=== PATIENT | female | born 1985 | race Caucasian/White ===

== ENCOUNTER → 2017-02-01 | Outpatient (CLI) | payer MEDICAID ==
[~2017-02-01] MED LIST: DEXA4TAB PO; GABA100C PO; GABA100C8 PO; HYDR2TAB13 PO; HYDR30CR69 RC; HYDR4TAB16 PO; IBUP200T48 PO; LORA0.5T PO; MORP30TA3 PO; NITR100C56 PO; ONDA4TAB10 PO; OXYC5TAB3 PO; SENN-25 PO; ZOLP10TA PO
== END | disposition home or self-care (01) ==
LOC: PETCFH 08:37
PROVIDERS: ATTEND Specialist
DX: C53.0 Malignant neoplasm of endocervix (principal); N20.0 Calculus of kidney; K76.0 Fatty (change of) liver, not elsewhere classified
CPT/HCPCS: 78815; A9552

== ENCOUNTER → 2017-02-20 | Outpatient (CLI) | payer MEDICAID | END | disposition home or self-care (01) | LOC: ROC 12:33 | PROVIDERS: ATTEND Radiology Radiation Oncology | DX: C79.51 Secondary malignant neoplasm of bone (principal); C53.9 Malignant neoplasm of cervix uteri, unspecified; Z87.891 Personal history of nicotine dependence | CPT/HCPCS: 99212; G0463 ==

== ENCOUNTER 2017-03-04 08:14 | Day surgery (SDC) | payer MEDICAID ==
[~2017-03-04] VITALS: Ht 162.6 cm; Wt 95.5 kg
[2017-03-04] MEDS ORDERED: FENTANYL PF 100 MCG/2ML ONE (08:27)
[2017-03-04] MEDS ORDERED: MIDAZOLAM 1 MG/ML, 5ML ONE (08:28)
[2017-03-04] MEDS ORDERED: NALOXONE 1 MG/ML, 2ML ONE (08:28)
[2017-03-04] MEDS ORDERED: FLUMAZENIL 0.1 MG/1 ML, 5ML ONE (08:29)
[2017-03-04 08:54] VITALS: BP 115/79
[2017-03-04] MEDS ORDERED: SODIUM CHLORIDE 0.9% 1,000 ML IV SCH (08:56)
== END 2017-03-04 11:25 | disposition home or self-care (01) ==
LOC: OUT 08:14
PROVIDERS: ATTEND Specialist
DX: C49.5 Malignant neoplasm of connective and soft tissue of pelvis (principal); C53.9 Malignant neoplasm of cervix uteri, unspecified
CPT/HCPCS: 20206; 77012; 88304; J2250; J3010; J7030; 99156; 99157; J2310

== ENCOUNTER 2017-04-05 10:06 | Observation (INO) | payer MEDICAID ==
[~2017-04-05] VITALS: Ht 162.6 cm; Wt 92.7 kg
[2017-04-05] MEDS ORDERED: ESTR0.5T PO (11:08)
[2017-04-05] MEDS ORDERED: ONDA4TAB10 PO (11:08)
[2017-04-05] MEDS ORDERED: GABA100C8 PO (11:08)
[2017-04-05] MEDS ORDERED: HYDR4TAB16 PO (11:08)
[2017-04-05] MEDS ORDERED: DEXA4TAB PO (11:08)
[2017-04-05] MEDS ORDERED: LORA0.5T PO (11:08)
[2017-04-05] MEDS ORDERED: ZOLP10TA5 PO (11:08)
[2017-04-05 11:39] VITALS: BP 129/52
[2017-04-05 11:59] LABS: BLOOD UREA NITROGEN 17 mg/dL (7-18)
[2017-04-05 12:00] LABS: ASPARTATE AMINO TRANSFERASE 21 U/L (15-37)
[2017-04-05] MEDS ORDERED: LORazepam 0.5MG TABLET PO PRN (13:00)
[2017-04-05] MEDS ORDERED: ZOLPIDEM 10MG TABLET PO PRN (13:00)
[2017-04-05] MEDS: SODIUM CHLORIDE 0.9% 1,000 ML IV SCH ×3 (13:00→23:07)
[2017-04-05] MEDS ORDERED: HYDROmorphone 4MG TABLET PO PRN (13:00)
[2017-04-05 13:07] LABS: DIFF TOTAL CELLS COUNTED 100 CELL DIFF
[2017-04-05 13:48] LABS: VERIFY COUNTS? YES
[2017-04-05 13:49] LABS: ANISOCYTOSIS 1+
[2017-04-05] MEDS ORDERED: HYDROmorphone 2MG TABLET ONE ×2 (14:04→20:05)
[2017-04-05] MEDS: HYDROmorphone 4MG TABLET PO PRN ×2 (14:09→20:08)
[2017-04-05] MEDS: ONDANSETRON ODT 4 MG PO PRN (14:10)
[2017-04-05 14:21] VITALS: BP 111/72
[2017-04-05] MEDS ORDERED: LORazepam 1MG TABLET ONE (15:12)
[2017-04-05] MEDS ORDERED: PROMETHAZINE 25 MG/ML, 1ML IM PRN (17:00)
[2017-04-05] MEDS ORDERED: DIPHENHYDRAMINE 50 MG/ML, 1ML IVPush ONE (17:15)
[2017-04-05] MEDS ORDERED: FAMOTIDINE 20 MG/2 ML IVPush ONE (17:15)
[2017-04-05] MEDS ORDERED: ONDANSETRON 16 MG, DEXAMETHASONE 20 MG in SODIUM CHLORIDE 0.9% 50 ML IVPB ONE (17:15)
[2017-04-05] MEDS ORDERED: SODIUM CHLORIDE 0.9% IV ONE ×5 (18:00→23:00)
[2017-04-05] MEDS ORDERED: CISPLATIN IV ONE ×2 (18:00→21:00)
[2017-04-05] MEDS ORDERED: FILTER 0.22 MICRON IV ONE (18:00)
[2017-04-05] MEDS ORDERED: PACLITAXEL IV ONE (18:00)
[2017-04-05] MEDS: GABAPENTIN 100 MG CAPSULE PO SCH ×2 (18:41→21:31)
[2017-04-05 20:33] VITALS: BP 102/58
[2017-04-05] MEDS ORDERED: BEVACIZUMAB IV ONE ×2 (21:00→23:00)
[2017-04-05 22:50] VITALS: BP 107/55
[2017-04-05 23:21] VITALS: BP 122/61
[2017-04-06 00:15] VITALS: BP 114/65
[2017-04-06] MEDS ORDERED: SODIUM CHLORIDE 0.9% 1,000 ML IV SCH (00:30)
[2017-04-06 00:42] VITALS: BP 117/69
[2017-04-06] MEDS ORDERED: HYDROmorphone 2MG TABLET ONE ×2 (02:00→08:56)
[2017-04-06] MEDS: HYDROmorphone 4MG TABLET PO PRN ×2 (02:02→08:57)
[2017-04-06 02:15] VITALS: BP 113/75
[2017-04-06 05:35] VITALS: BP 105/62
[2017-04-06] MEDS: ONDANSETRON ODT 4 MG PO PRN ×2 (06:27→13:53)
[2017-04-06] MEDS: SODIUM CHLORIDE 0.9% 1,000 ML IV SCH ×2 (07:20→08:51)
[2017-04-06 08:44] VITALS: BP 126/74
[2017-04-06] MEDS: GABAPENTIN 100 MG CAPSULE PO SCH (08:57)
[2017-04-06] MEDS ORDERED: ESTRADIOL 0.5 MG TABLET PO SCH (09:00)
[2017-04-06 12:44] VITALS: BP 112/71
[2017-04-06] MEDS ORDERED: DOCU-30 PO ×3 (13:35→13:37)
== END 2017-04-06 14:23 | disposition home or self-care (01) ==
LOC: 3NW 10:28 → INTOOBSV 10:28
PROVIDERS: ADMIT Specialist; ATTEND Specialist
DX: C53.9 Malignant neoplasm of cervix uteri, unspecified (principal); Z51.11 Encounter for antineoplastic chemotherapy; Z87.891 Personal history of nicotine dependence
CPT/HCPCS: 36415; 80053; 82570; 83735; 84100; 84156; 85025; 86304; 96361; 96367; 96375; 96413; 96415; 96417; G0378; J1100; J1200; J2405; J7030; J7050; J9035; J9060; J9267; Q0162; S0028

== ENCOUNTER 2017-04-19 09:00 | Observation (INO) | payer MEDICAID ==
[~2017-04-19] VITALS: Ht 162.6 cm; Wt 95.3 kg
[~2017-04-19 09:00] MED LIST changes: +DOCU-30 PO; +ESTR0.5T PO; +ZOLP10TA5 PO
[2017-04-26 12:41] VITALS: BP 135/93
[2017-04-26] MEDS ORDERED: SODIUM CHLORIDE 0.9% 1,000 ML IV SCH ×3 (15:00→22:30)
[2017-04-26] MEDS ORDERED: PROMETHAZINE 25 MG/ML, 1ML IM PRN (15:30)
[2017-04-26] MEDS ORDERED: DIPHENHYDRAMINE 50 MG/ML, 1ML IVPush ONE (16:00)
[2017-04-26] MEDS ORDERED: FAMOTIDINE 20 MG/2 ML IVPush ONE (16:00)
[2017-04-26] MEDS ORDERED: ONDANSETRON 16 MG, DEXAMETHASONE 20 MG in SODIUM CHLORIDE 0.9% 50 ML IVPB ONE (16:00)
[2017-04-26] MEDS ORDERED: FILTER 0.22 MICRON IV ONE (16:30)
[2017-04-26] MEDS ORDERED: PACLITAXEL IV ONE (16:30)
[2017-04-26] MEDS ORDERED: SODIUM CHLORIDE 0.9% IV ONE ×3 (16:30→21:30)
[2017-04-26] MEDS: SODIUM CHLORIDE 0.9% 1,000 ML IV SCH (16:32)
[2017-04-26 16:35] VITALS: BP 121/79
[2017-04-26 18:44] VITALS: BP 103/67
[2017-04-26] MEDS ORDERED: HYDROmorphone 2MG TABLET PO PRN (19:30)
[2017-04-26] MEDS ORDERED: ZOLPIDEM 10MG TABLET PO PRN (19:30)
[2017-04-26] MEDS ORDERED: LORazepam 0.5MG TABLET PO PRN (19:30)
[2017-04-26] MEDS ORDERED: CISPLATIN IV ONE (19:30)
[2017-04-26] MEDS: ONDANSETRON ODT 4 MG PO PRN (20:52)
[2017-04-26] MEDS: DOCUSATE 100 MG CAPSULE PO SCH (21:16)
[2017-04-26] MEDS ORDERED: BEVACIZUMAB IV ONE (21:30)
[2017-04-26] MEDS: GABAPENTIN 100 MG CAPSULE PO SCH (22:38)
[2017-04-27] MEDS ORDERED: ONDANSETRON 2MG/ML, 2ML IVPush PRN (01:30)
[2017-04-27] MEDS ORDERED: PROCHLORPERAZINE 5 MG/ML, 2ML IVPush PRN (01:30)
[2017-04-27] MEDS ORDERED: DEXAMETHASONE 4 MG/ML, 1ML IVPush SCH (01:30)
[2017-04-27] MEDS ORDERED: ONDANSETRON 2MG/ML, 2ML ONE (01:32)
[2017-04-27 03:04] VITALS: BP 114/72
[2017-04-27] MEDS ORDERED: SODIUM CHLORIDE 0.9% 1,000ML IVBOLUS ONE (04:30)
[2017-04-27] MEDS ORDERED: DEXAMETHASONE 4 MG/ML, 1ML IVPush PRN (07:30)
[2017-04-27] MEDS: GABAPENTIN 100 MG CAPSULE PO SCH (08:06)
[2017-04-27] MEDS: DOCUSATE 100 MG CAPSULE PO SCH (08:06)
[2017-04-27 08:09] VITALS: BP 107/72
[2017-04-27] MEDS ORDERED: ESTRADIOL 0.5 MG TABLET PO SCH (09:00)
[2017-04-27] MEDS: ONDANSETRON ODT 4 MG PO PRN (09:57)
[2017-04-27] MEDS: SODIUM CHLORIDE 0.9% 1,000 ML IV SCH (09:57)
== END 2017-04-27 10:40 | disposition home or self-care (01) ==
LOC: 3NW 04-26 11:46 → INTOOBSV 04-26 11:46
PROVIDERS: ADMIT Internal Medicine; ATTEND Internal Medicine
DX: Z51.11 Encounter for antineoplastic chemotherapy (principal); C53.9 Malignant neoplasm of cervix uteri, unspecified
CPT/HCPCS: 36415; 84100; 86304; 96361; 96367; 96372; 96375; 96413; 96415; 96417; G0378; J0780; J1100; J1200; J2405; J2550; J7030; J7050; J9035; J9060; J9267; Q0162; S0028

== ENCOUNTER 2017-05-17 09:37 | Observation (INO) | payer MEDICAID ==
[~2017-05-17] VITALS: Ht 162.6 cm; Wt 95.0 kg
[~2017-05-17 09:37] MED LIST changes: +GABA-826 PO; -GABA100C8 PO; -HYDR2TAB13 PO; +HYDR2TAB29 PO; -HYDR4TAB16 PO; +HYDR4TAB48 PO
[2017-05-17 10:35] VITALS: BP 144/104
[2017-05-17] MEDS ORDERED: PROC10TA78 PO (10:35)
[2017-05-17] MEDS ORDERED: FAMO10TA77 PO (10:35)
[2017-05-17] MEDS ORDERED: SODIUM CHLORIDE 0.9% 1,000 ML IV ONE ×2 (11:00→20:00)
[2017-05-17 11:08] LABS: ASPARTATE AMINO TRANSFERASE 32 U/L (15-37); BLOOD UREA NITROGEN 16 mg/dL (7-18)
[2017-05-17 11:21] LABS: DIFF TOTAL CELLS COUNTED 100 CELL DIFF
[2017-05-17 11:23] LABS: ANISOCYTOSIS 1+; POLYCHROMASIA 1+; VERIFY COUNTS? YES
[2017-05-17 12:05] LABS: PATH.CAST-FLAG NOT PRESENT; SPERM-FLAG NOT PRESENT; SRC-FLAG NOT PRESENT; XTAL-FLAG NOT PRESENT; YLC-FLAG NOT PRESENT
[2017-05-17 12:49] VITALS: BP 142/98
[2017-05-17] MEDS ORDERED: PROMETHAZINE 25 MG/ML, 1ML IM PRN (13:30)
[2017-05-17] MEDS ORDERED: PROCHLORPERAZINE 10MG TABLET PO PRN (14:00)
[2017-05-17] MEDS ORDERED: FAMOTIDINE 20 MG/2 ML IVPush ONE (14:00)
[2017-05-17] MEDS ORDERED: DIPHENHYDRAMINE 50 MG/ML, 1ML IVPush ONE (14:00)
[2017-05-17] MEDS ORDERED: ONDANSETRON 16 MG, DEXAMETHASONE 20 MG in SODIUM CHLORIDE 0.9% 50 ML IVPB ONE (14:00)
[2017-05-17] MEDS ORDERED: FILTER 0.22 MICRON IV ONE (14:30)
[2017-05-17] MEDS ORDERED: SODIUM CHLORIDE 0.9% IV ONE ×3 (14:30→19:30)
[2017-05-17] MEDS ORDERED: PACLITAXEL IV ONE (14:30)
[2017-05-17] MEDS: LORazepam 0.5MG TABLET PO PRN ×2 (14:38→21:02)
[2017-05-17] MEDS: SODIUM CHLORIDE 0.9% 1,000 ML IV SCH (15:39)
[2017-05-17] MEDS ORDERED: CISPLATIN IV ONE (17:30)
[2017-05-17] MEDS: GABAPENTIN 100 MG CAPSULE PO SCH ×2 (17:44→21:02)
[2017-05-17 18:29] VITALS: BP 147/90
[2017-05-17] MEDS ORDERED: HYDROmorphone 2MG TABLET ONE (18:41)
[2017-05-17] MEDS: ONDANSETRON ODT 4 MG PO PRN (18:44)
[2017-05-17] MEDS: HYDROmorphone 4MG TABLET PO PRN (18:47)
[2017-05-17] MEDS ORDERED: BEVACIZUMAB IV ONE (19:30)
[2017-05-17] MEDS ORDERED: MAGNESIUM HYDROXIDE 8%, 30ML UDC PO SCH (21:00)
[2017-05-18 00:30] VITALS: BP 140/89
[2017-05-18] MEDS ORDERED: HYDROmorphone 2MG TABLET ONE ×2 (00:32→04:00)
[2017-05-18] MEDS: SODIUM CHLORIDE 0.9% 1,000 ML IV SCH (02:37)
[2017-05-18] MEDS: HYDROmorphone 4MG TABLET PO PRN (04:04)
[2017-05-18] MEDS: ONDANSETRON ODT 4 MG PO PRN (06:19)
[2017-05-18 06:46] VITALS: BP 127/78
== END 2017-05-18 09:45 | disposition home or self-care (01) ==
LOC: 3NW 09:37
PROVIDERS: ADMIT Specialist; ATTEND Specialist
DX: Z51.11 Encounter for antineoplastic chemotherapy (principal); C53.9 Malignant neoplasm of cervix uteri, unspecified; N39.0 Urinary tract infection, site not specified; K59.00 Constipation, unspecified; R11.0 Nausea
CPT/HCPCS: 36415; 80053; 81001; 82570; 83735; 84100; 84156; 85025; 86304; 96361; 96367; 96372; 96375; 96413; 96415; 96417; G0378; J1100; J1200; J2405; J2550; J7030; J7050; J9035; J9060; J9267; Q0162; Q0164; S0028

== ENCOUNTER 2017-06-07 12:49 | Observation (INO) | payer MEDICAID ==
[~2017-06-07] VITALS: Ht 162.6 cm; Wt 96.8 kg
[~2017-06-07 12:49] MED LIST changes: +FAMO10TA77 PO; +PROC10TA78 PO
[2017-06-07 14:28] VITALS: BP 115/85
[2017-06-07 14:31] LABS: BLOOD UREA NITROGEN 18 mg/dL (7-18)
[2017-06-07 14:35] LABS: ASPARTATE AMINO TRANSFERASE 27 U/L (15-37)
[2017-06-07] MEDS ORDERED: SODIUM CHLORIDE 0.9% 1,000 ML IV ONE (15:00)
[2017-06-07] MEDS ORDERED: METOCLOPRAMIDE 10MG TABLET PO PRN (15:30)
[2017-06-07] MEDS ORDERED: HYDROmorphone 4MG TABLET PO PRN (16:00)
[2017-06-07] MEDS ORDERED: DEXAMETHASONE 4 MG TABLET PO PRN (16:00)
[2017-06-07] MEDS ORDERED: PROCHLORPERAZINE 10MG TABLET PO PRN (16:00)
[2017-06-07] MEDS ORDERED: LORazepam 0.5MG TABLET PO PRN (16:00)
[2017-06-07] MEDS: GABAPENTIN 100 MG CAPSULE PO SCH ×3 (17:44→21:00)
[2017-06-07] MEDS ORDERED: SODIUM CHLORIDE 0.9% 1,000 ML IV SCH (18:00)
[2017-06-07] MEDS ORDERED: ONDANSETRON 16 MG, DEXAMETHASONE 20 MG in SODIUM CHLORIDE 0.9% 50 ML IVPB ONE (18:00)
[2017-06-07] MEDS ORDERED: DIPHENHYDRAMINE 50 MG/ML, 1ML IVPush ONE (18:00)
[2017-06-07] MEDS ORDERED: FAMOTIDINE 20 MG/2 ML IVPush ONE (18:00)
[2017-06-07] MEDS ORDERED: PACLITAXEL IV ONE (18:30)
[2017-06-07] MEDS ORDERED: SODIUM CHLORIDE 0.9% IV ONE ×3 (18:30→23:30)
[2017-06-07] MEDS ORDERED: FILTER 0.22 MICRON IV ONE (18:30)
[2017-06-07 19:56] VITALS: BP 120/74
[2017-06-07] MEDS ORDERED: ZOLPIDEM 10MG TABLET PO PRN (21:00)
[2017-06-07] MEDS ORDERED: CISPLATIN IV ONE (21:30)
[2017-06-07] MEDS: PROMETHAZINE 25 MG/ML, 1ML IM PRN (21:51)
[2017-06-07] MEDS ORDERED: BEVACIZUMAB IV ONE (23:30)
[2017-06-08] MEDS ORDERED: SODIUM CHLORIDE 0.9% 1,000 ML IV ONE
[2017-06-08 03:34] VITALS: BP 110/70
[2017-06-08] MEDS ORDERED: ONDANSETRON ODT 4 MG PO PRN (06:00)
[2017-06-08 06:44] VITALS: BP 107/71
[2017-06-08] MEDS ORDERED: HYDROmorphone 2MG TABLET ONE (08:52)
[2017-06-08] MEDS: PROMETHAZINE 25 MG/ML, 1ML IM PRN (08:58)
[2017-06-08] MEDS: GABAPENTIN 100 MG CAPSULE PO SCH (08:59)
[2017-06-08] MEDS ORDERED: ESTRADIOL 0.5 MG TABLET PO SCH (09:00)
[2017-06-08] MEDS ORDERED: FAMOTIDINE 20 MG TABLET PO SCH (09:00)
== END 2017-06-08 10:30 | disposition home or self-care (01) ==
LOC: 3NW 12:49
PROVIDERS: ADMIT Specialist; ATTEND Specialist
DX: Z51.11 Encounter for antineoplastic chemotherapy (principal); C53.9 Malignant neoplasm of cervix uteri, unspecified
CPT/HCPCS: 36415; 80053; 82570; 83735; 84100; 84156; 85025; 86304; 96361; 96367; 96372; 96375; 96413; 96415; 96417; G0378; J1100; J1200; J2405; J2550; J7030; J7050; J9035; J9060; J9267; S0028

== ENCOUNTER 2017-06-28 09:00 | Observation (INO) | payer MEDICAID ==
[~2017-06-28] VITALS: Ht 162.6 cm; Wt 97.1 kg
[2017-06-28 11:49] VITALS: BP 127/51
[2017-06-28] MEDS ORDERED: HYDROmorphone 2MG TABLET PO PRN (13:00)
[2017-06-28] MEDS ORDERED: SODIUM CHLORIDE 0.9% 1,000 ML IV SCH (13:00)
[2017-06-28] MEDS ORDERED: LORazepam 1MG TABLET PO PRN (13:00)
[2017-06-28] MEDS ORDERED: MAGNESIUM SULFATE PMX 2GM/50ML 50 ML IVPB ONE (13:30)
[2017-06-28 13:34] VITALS: BP 145/92
[2017-06-28] MEDS ORDERED: DIPHENHYDRAMINE 50 MG/ML, 1ML IVPush ONE (16:00)
[2017-06-28] MEDS ORDERED: ONDANSETRON 16 MG, DEXAMETHASONE 20 MG in SODIUM CHLORIDE 0.9% 50 ML IVPB ONE (16:00)
[2017-06-28] MEDS ORDERED: FAMOTIDINE 20 MG/2 ML IVPush ONE (16:00)
[2017-06-28] MEDS: GABAPENTIN 100 MG CAPSULE PO SCH ×2 (16:25→20:57)
[2017-06-28] MEDS: SODIUM CHLORIDE 0.9% 1,000 ML IV SCH (16:26)
[2017-06-28] MEDS ORDERED: SODIUM CHLORIDE 0.9% IV ONE ×3 (17:00→22:00)
[2017-06-28] MEDS ORDERED: FILTER 0.22 MICRON IV ONE (17:00)
[2017-06-28] MEDS ORDERED: PACLITAXEL IV ONE (17:00)
[2017-06-28] MEDS: PROMETHAZINE 25 MG/ML, 1ML IM PRN (17:51)
[2017-06-28 19:29] VITALS: BP 139/87
[2017-06-28] MEDS ORDERED: CISPLATIN IV ONE (20:00)
[2017-06-28] MEDS: ONDANSETRON 4 MG TABLET PO PRN (20:23)
[2017-06-28] MEDS: LORazepam 1MG TABLET PO PRN (20:57)
[2017-06-28] MEDS ORDERED: BEVACIZUMAB IV ONE (22:00)
[2017-06-28] MEDS ORDERED: SODIUM CHLORIDE 0.9% 1,000 ML IV ONE (22:30)
[2017-06-29 00:02] VITALS: BP 142/88
[2017-06-29] MEDS: LORazepam 1MG TABLET PO PRN (02:06)
[2017-06-29] MEDS: ONDANSETRON 4 MG TABLET PO PRN (05:55)
[2017-06-29] MEDS: SODIUM CHLORIDE 0.9% 1,000 ML IV SCH (05:55)
[2017-06-29 06:43] VITALS: BP 139/88
[2017-06-29] MEDS: GABAPENTIN 100 MG CAPSULE PO SCH (08:23)
[2017-06-29] MEDS: PROMETHAZINE 25 MG/ML, 1ML IM PRN (08:23)
== END 2017-06-29 09:50 | disposition home or self-care (01) ==
LOC: 3NW 11:27
PROVIDERS: ADMIT Specialist; ATTEND Specialist
DX: Z51.11 Encounter for antineoplastic chemotherapy (principal); C53.9 Malignant neoplasm of cervix uteri, unspecified
CPT/HCPCS: 96361; 96366; 96367; 96372; 96375; 96413; 96415; 96417; G0378; J1100; J1200; J2405; J2550; J3475; J7030; J7050; J9035; J9060; J9267; Q0162; S0028

== ENCOUNTER 2017-07-19 11:00 | Observation (INO) | payer MEDICAID ==
[~2017-07-19] VITALS: Ht 162.6 cm; Wt 95.9 kg
[~2017-07-19 11:00] MED LIST changes: +DOCU-131 PO; -DOCU-30 PO
[2017-07-19 14:01] VITALS: BP 122/88
[2017-07-19 14:27] VITALS: BP 122/88
[2017-07-19] MEDS ORDERED: SODIUM CHLORIDE 0.9% 1,000 ML IV ONE (15:30)
[2017-07-19] MEDS: PROMETHAZINE 25 MG/ML, 1ML IM PRN (18:32)
[2017-07-19] MEDS ORDERED: FAMOTIDINE 20 MG/2 ML IVPush ONE (19:00)
[2017-07-19] MEDS ORDERED: DIPHENHYDRAMINE 50 MG/ML, 1ML IVPush ONE (19:00)
[2017-07-19] MEDS ORDERED: ONDANSETRON 16 MG, DEXAMETHASONE 20 MG in SODIUM CHLORIDE 0.9% 50 ML IVPB ONE (19:00)
[2017-07-19] MEDS ORDERED: SODIUM CHLORIDE 0.9% IV ONE ×2 (19:30→22:30)
[2017-07-19] MEDS ORDERED: PACLITAXEL IV ONE (19:30)
[2017-07-19] MEDS ORDERED: FILTER 0.22 MICRON IV ONE (19:30)
[2017-07-19] MEDS: SODIUM CHLORIDE 0.9% 1,000 ML IV SCH ×3 (19:42→21:12)
[2017-07-19 20:14] VITALS: BP 143/83
[2017-07-19] MEDS: LORazepam 1MG TABLET PO PRN (21:12)
[2017-07-19] MEDS ORDERED: CISPLATIN IV ONE (22:30)
[2017-07-20] MEDS ORDERED: SODIUM CHLORIDE 0.9% IV ONE (00:30)
[2017-07-20] MEDS ORDERED: BEVACIZUMAB IV ONE (00:30)
[2017-07-20] MEDS ORDERED: SODIUM CHLORIDE 0.9% 1,000 ML IV ONE (01:00)
[2017-07-20] MEDS: LORazepam 1MG TABLET PO PRN (03:46)
[2017-07-20 03:53] VITALS: BP 126/77
[2017-07-20] MEDS: PROMETHAZINE 25 MG/ML, 1ML IM PRN ×2 (05:06→11:16)
[2017-07-20 07:33] VITALS: BP 136/86
[2017-07-20] MEDS ORDERED: PROCHLORPERAZINE 10MG TABLET PO PRN (09:00)
[2017-07-20] MEDS ORDERED: DEXAMETHASONE 4 MG TABLET PO PRN ×2 (09:00→11:00)
[2017-07-20] MEDS ORDERED: ONDANSETRON 4 MG TABLET PO PRN (09:00)
[2017-07-20] MEDS ORDERED: LORazepam 0.5MG TABLET PO PRN (11:00)
[2017-07-20] MEDS ORDERED: ZOLPIDEM 10MG TABLET PO PRN (11:00)
[2017-07-20] MEDS ORDERED: HYDROmorphone 4MG TABLET PO PRN (11:00)
[2017-07-20] MEDS ORDERED: PROCHLORPERAZINE 10MG TABLET PO SCH (11:00)
[2017-07-20] MEDS ORDERED: ONDANSETRON ODT 4 MG PO PRN (11:00)
[2017-07-20] MEDS ORDERED: GABAPENTIN 100 MG CAPSULE PO SCH (16:00)
[2017-07-21] MEDS ORDERED: ESTRADIOL 0.5 MG TABLET PO SCH (09:00)
== END 2017-07-20 12:33 | disposition home or self-care (01) ==
LOC: INTOOBSV 13:29 → 3NW 13:29
PROVIDERS: ADMIT Specialist; ATTEND Specialist
DX: Z51.11 Encounter for antineoplastic chemotherapy (principal); C79.89 Secondary malignant neoplasm of other specified sites; R11.0 Nausea
CPT/HCPCS: 36415; 82570; 84100; 84156; 96361; 96367; 96375; 96413; 96415; 96417; G0378; J1100; J1200; J2405; J2550; J7030; J7050; J9035; J9060; J9267; Q0162; 96360; S0028

== ENCOUNTER 2017-08-04 02:08 | Emergency (ER) | payer MEDICAID ==
[~2017-08-04] VITALS: Ht 162.6 cm; Wt 100.0 kg
[2017-08-04] MEDS ORDERED: SODIUM CHLORIDE 0.9% 1,000ML IVBOLUS ONE (03:00)
[2017-08-04] MEDS ORDERED: FAMOTIDINE 20 MG/2 ML IVP ONE (03:00)
[2017-08-04] MEDS ORDERED: ONDANSETRON 2MG/ML, 2ML IVPush ONE (03:00)
[2017-08-04] MEDS ORDERED: SODIUM CHLORIDE FLUSH 10ML SYR IVF ONE (03:00)
[2017-08-04] MEDS ORDERED: MAALOX/HYOSCYAMINE/LIDOCAINE 45 ML BTL PO ONE (03:00)
[2017-08-04 03:37] LABS: HEMATOCRIT 35.5 % (34.6-47.8); HEMOGLOBIN 11.8 g/dL (11.7-16.4); WHITE BLOOD COUNT 4.5 x10^3/uL (3.4-10)
[2017-08-04] MEDS ORDERED: ONDANSETRON 2MG/ML, 2ML ONE (03:45)
[2017-08-04] MEDS ORDERED: FAMOTIDINE 20 MG/2 ML ONE (03:45)
[2017-08-04] MEDS ORDERED: MAALOX/HYOSCYAMINE/LIDOCAINE 45 ML BTL ONE (03:45)
[2017-08-04 03:48] LABS: BLOOD UREA NITROGEN 15 mg/dL (7-18)
[2017-08-04 03:54] LABS: ASPARTATE AMINO TRANSFERASE 27 U/L (15-37)
[2017-08-04 03:55] LABS: IS PT STATUS REG ER OR PRE ER? YES
[2017-08-04 05:40] LABS: PATH.CAST-FLAG NOT PRESENT; SPERM-FLAG NOT PRESENT; SRC-FLAG NOT PRESENT; XTAL-FLAG NOT PRESENT; YLC-FLAG NOT PRESENT
[2017-08-04 06:14] VITALS: BP 156/96
== END 2017-08-04 06:16 | disposition home or self-care (01) ==
LOC: ED 04:26
DX: K80.70 Calculus of gallbladder and bile duct without cholecystitis without obstruction (principal); R10.13 Epigastric pain; G89.29 Other chronic pain; Z85.41 Personal history of malignant neoplasm of cervix uteri
CPT/HCPCS: 36415; 71020; 76700; 80053; 81001; 83690; 84484; 84703; 85025; 87086; 93005; 96361; 96374; 96375; 99285; J2405; J7030; S0028

== ENCOUNTER → 2017-11-14 | Outpatient (CLI) | payer MEDICAID ==
[~2017-11-14] MED LIST changes: -IBUP200T48 PO; +IBUP200T49 PO
== END | disposition home or self-care (01) ==
LOC: PETCFH 09:55
PROVIDERS: ATTEND Specialist
DX: C79.51 Secondary malignant neoplasm of bone (principal); C53.0 Malignant neoplasm of endocervix
CPT/HCPCS: 78815; A9552

== ENCOUNTER → 2018-03-03 | Outpatient (CLI) | payer MEDICAID ==
[~2018-03-03] MED LIST changes: +OMNIPAQUE 350 MG/ML, 100ML BOTTLE ONE
== END | disposition home or self-care (01) ==
LOC: CFH 12:53
PROVIDERS: ATTEND Specialist
DX: N20.0 Calculus of kidney (principal); C53.0 Malignant neoplasm of endocervix
CPT/HCPCS: 74177; Q9967

== ENCOUNTER 2018-11-04 19:23 | Emergency (ER) | payer MEDICAID ==
[~2018-11-04] VITALS: Ht 167.6 cm; Wt 91.1 kg
[~2018-11-04 19:23] MED LIST changes: -OMNIPAQUE 350 MG/ML, 100ML BOTTLE ONE
[2018-11-04] MEDS ORDERED: DULO30CA2 PO (20:17)
[2018-11-04] MEDS ORDERED: FENT1PAT77 ID (20:17)
[2018-11-04] MEDS ORDERED: SENN8.6T5 PO (20:17)
[2018-11-04] MEDS ORDERED: DEXA1.5T6 PO (20:17)
[2018-11-04] MEDS ORDERED: HYDR50TA13 PO (20:17)
[2018-11-04 20:49] VITALS: BP 123/85
[2018-11-04] MEDS ORDERED: SODIUM CHLORIDE 0.9% 1,000ML IVBOLUS ONE (21:00)
== END 2018-11-04 22:30 | disposition home or self-care (01) ==
LOC: ED 20:13
DX: M25.551 Pain in right hip (principal); G89.29 Other chronic pain; R09.02 Hypoxemia; C53.9 Malignant neoplasm of cervix uteri, unspecified; C79.51 Secondary malignant neoplasm of bone; E11.65 Type 2 diabetes mellitus with hyperglycemia
CPT/HCPCS: 82962; 93971; 96360; 99284; J7030

== ENCOUNTER 2019-03-25 18:05 | Inpatient (IN) | payer OTHER ==
[~2019-03-25] VITALS: Ht 162.6 cm; Wt 91.7 kg
[~2019-03-25 18:05] MED LIST changes: +DEXA1.5T6 PO; +DULO30CA2 PO; +FENT1PAT77 ID; +HYDR50TA13 PO; +SENN8.6T5 PO
[2019-03-25] MEDS ORDERED: SODIUM CHLORIDE 0.9% 1,000 ML IV SCH (18:15)
[2019-03-25] MEDS ORDERED: HYDROmorphone 10 MG in SODIUM CHLORIDE 0.9% 245 ML IVPB PRN (18:15)
[2019-03-25] MEDS ORDERED: BISACODYL 10 MG SUPP PR PRN (18:30)
[2019-03-25] MEDS ORDERED: HYDROmorphone 1 MG/ML, 1ML INJ IVPush PRN (18:30)
[2019-03-25] MEDS ORDERED: LACTULOSE 10 GM/15 ML UDC PO PRN (18:30)
[2019-03-25] MEDS ORDERED: ATROPINE OPHTH SOLN 1%, 5ML BC PRN (18:30)
[2019-03-25] MEDS ORDERED: HYDROmorphone 2 MG/ML, 1ML ONE ×2 (19:36→22:18)
[2019-03-25] MEDS: HYDROmorphone 1 MG/ML, 1ML INJ IVPush PRN ×2 (19:42→22:24)
[2019-03-25] MEDS: SCOPOLAMINE PATCH, 1.5MG PATCH.TD72 TD SCH (19:43)
[2019-03-25] MEDS: FENTANYL 100 MCG PATCH TD SCH (19:43)
[2019-03-25] MEDS: SENNA/DOCUSATE TABLET PO SCH (20:57)
[2019-03-26] MEDS ORDERED: HYDROmorphone 2 MG/ML, 1ML ONE ×3 (00:31→04:11)
[2019-03-26] MEDS: HYDROmorphone 1 MG/ML, 1ML INJ IVPush PRN ×2 (00:34→04:14)
[2019-03-26] MEDS: LORazepam 2 MG/ML, 1ML IVPush PRN ×4 (00:44→22:40)
[2019-03-26] MEDS: SENNA/DOCUSATE TABLET PO SCH ×2 (09:09→19:04)
[2019-03-26] MEDS: HYDROmorphone 2 MG/ML, 1ML IVPush PRN ×3 (15:02→22:25)
[2019-03-26] MEDS: HYDROMORPHONE HCL IV PRN ×2 (17:05→22:18)
[2019-03-26] MEDS: SODIUM CHLORIDE 0.9% IV PRN ×2 (17:05→22:18)
[2019-03-27] MEDS: SODIUM CHLORIDE 0.9% IV PRN (03:04)
[2019-03-27] MEDS: HYDROMORPHONE HCL IV PRN (03:04)
[2019-03-27] MEDS: SENNA/DOCUSATE TABLET PO SCH ×2 (09:00→19:19)
[2019-03-27] MEDS ORDERED: HYDROMORPHONE HCL IV PRN (10:00)
[2019-03-27] MEDS ORDERED: SODIUM CHLORIDE 0.9% IV PRN (10:00)
[2019-03-27] MEDS: HYDROmorphone 2 MG/ML, 1ML IVPush PRN ×3 (10:34→22:47)
[2019-03-27] MEDS: LORazepam 2 MG/ML, 1ML IVPush PRN ×3 (10:34→20:37)
[2019-03-27] MEDS ORDERED: PHARMACY INSTRUCTION MC PRN (15:30)
[2019-03-27] MEDS ORDERED: LORazepam 2 MG/ML, 1ML IVPush PRN (15:30)
[2019-03-28] MEDS: HYDROmorphone 2 MG/ML, 1ML IVPush PRN ×3 (01:23→18:41)
[2019-03-28] MEDS: LORazepam 2 MG/ML, 1ML IVPush PRN ×3 (02:10→18:41)
[2019-03-28] MEDS: SENNA/DOCUSATE TABLET PO SCH ×2 (09:00→19:20)
[2019-03-28] MEDS ORDERED: LORazepam 2 MG/ML, 1ML IVPush PRN (11:30)
[2019-03-28] MEDS ORDERED: HYDROmorphone 2 MG/ML, 1ML IVPush PRN (11:30)
[2019-03-28] MEDS ORDERED: FENTANYL REMOVE PATCH NOTE XX SCH (18:29)
[2019-03-28] MEDS: FENTANYL 100 MCG PATCH TD SCH (18:30)
[2019-03-28] MEDS: SCOPOLAMINE PATCH, 1.5MG PATCH.TD72 TD SCH (18:39)
[2019-03-29] MEDS: SENNA/DOCUSATE TABLET PO SCH ×2 (09:00→19:56)
[2019-03-29] MEDS: LORazepam 2 MG/ML, 1ML IVPush PRN (15:33)
[2019-03-29] MEDS: HYDROmorphone 2 MG/ML, 1ML IVPush PRN ×2 (15:33→20:34)
== END 2019-03-30 04:41 | disposition expired | DRG 871 ==
LOC: 3NW 18:19
PROVIDERS: ADMIT Internal Medicine; ATTEND Internal Medicine
DX: A41.9 Sepsis, unspecified organism (principal); R53.2 Functional quadriplegia; E87.1 Hypo-osmolality and hyponatremia; C79.51 Secondary malignant neoplasm of bone; M00.9 Pyogenic arthritis, unspecified; M84.459A Pathological fracture, hip, unspecified, initial encounter for fracture; M84.48XA Pathological fracture, other site, initial encounter for fracture; M86.8X5 Other osteomyelitis, thigh; N39.0 Urinary tract infection, site not specified; L02.415 Cutaneous abscess of right lower limb; Z82.49 Family history of ischemic heart disease and other diseases of the circulatory system; Z66 Do not resuscitate; C53.9 Malignant neoplasm of cervix uteri, unspecified; E11.65 Type 2 diabetes mellitus with hyperglycemia; E88.09 Other disorders of plasma-protein metabolism, not elsewhere classified; G89.3 Neoplasm related pain (acute) (chronic); K76.0 Fatty (change of) liver, not elsewhere classified; E11.69 Type 2 diabetes mellitus with other specified complication; Z51.5 Encounter for palliative care; Z93.3 Colostomy status
CPT/HCPCS: 93005; G0378; J1170; J2060; J7050